=== PATIENT | female | born 1980 | race Caucasian/White ===

== ENCOUNTER 2019-03-02 12:14 | Emergency (ER) | payer SELFPAY ==
--- NOTE | 2019-03-02 12:26 | ER Document Report ---
ED Medical Screen (RME) - General Chief Complaint: Low Back Pain Stated Complaint: LOWER BACK PAIN Time Seen by Provider: 03/02/19 12:23 TRAVEL OUTSIDE OF THE [place] IN LAST 30 DAYS: No - HPI Notes: 03/02/19 12:24 Patient is a 39-year-old female with renal cancer in the past, not on any medicines and admission, who presents complaining of severe pain near her upper midline buttock area/coccyx area x2 days. She has not noticed any drainage or obvious swelling otherwise on the surface. Denies injury. Patient states that she has had some urinary frequency, but no other concerns or complaints. Denies drug allergies. I have treated and performed a rapid initial assessment of this patient. A comprehensive ED assessment and evaluation of the patient, analysis of test results and completion of medical decision making process will be conducted by additional ED providers. PHYSICAL EXAMINATION: GENERAL: Well-appearing, well-nourished and in no acute distress. A&Ox4. Answers questions appropriately. Low back/buttock: Patient has significant tenderness to her midline upper buttock area/coccyx area. I do not see any significant erythema or swelling superficially. No L-spine tenderness. No swelling of the rectum. - Related Data Allergies/Adverse Reactions: No Known Allergies Allergy (Verified 03/02/19 12:19) Past Medical History - Social History Chew tobacco use (# tins/day): No Frequency of alcohol use: None Past Surgical History: Reports: Hx Section - x 2, Hx Kidney (Renal Surgery), Hx Orthopedic Surgery - lower back, Hx Tonsillectomy, Hx Tubal Ligation
[2019-03-02 12:50] LABS: ABSOLUTE EOSINOPHILS # (AUTO) 0.2 10^3/uL (0.0-0.6); ABSOLUTE LYMPHOCYTES (AUTO) 1.7 10^3/uL (0.5-4.7); ABSOLUTE MONOCYTES (AUTO) 0.4 10^3/uL (0.1-1.4); ABSOLUTE NEUT (AUTO) 3.3 10^3/uL (1.7-8.2); BASOPHILS % (AUTO) 0.6 % (0-2); EOSINOPHILS % (AUTO) 3.1 % (0-6); HEMATOCRIT 39.1 % (36.0-47.0); HEMOGLOBIN 12.8 g/dL (12.0-15.5); LYMPHOCYTES % (AUTO) 29.9 % (13-45); MEAN CORPUSCULAR HEMOGLOBIN 26.3 pg (27.0-33.4); MEAN CORPUSCULAR HGB CONC 32.7 g/dL (32.0-36.0); MEAN CORPUSCULAR VOLUME 81 fl (80-97); PLATELET COUNT 257 10^3/uL (150-450); RED BLOOD COUNT 4.86 10^6/uL (3.72-5.28); RED CELL DISTRIBUTION WIDTH 15.6 % (11.5-14.0); SEGMENTED NEUTROPHILS % (AUTO) 58.4 % (42-78); TOTAL CELLS COUNTED % (AUTO) 100 %; WHITE BLOOD COUNT 5.6 10^3/uL (4.0-10.5)
[2019-03-02 13:06] LABS: ALBUMIN 3.9 g/dL (3.5-5.0); ALKALINE PHOSPHATASE 62 U/L (38-126); ANION GAP 7 (5-19); ASPARTATE AMINO TRANSFERASE 18 U/L (14-36); BILIRUBIN,DIRECT 0.2 mg/dL (0.0-0.4); BILIRUBIN,TOTAL 0.4 mg/dL (0.2-1.3); BLOOD UREA NITROGEN 19 mg/dL (7-20); CALCIUM 9.1 mg/dL (8.4-10.2); CARBON DIOXIDE 27 mmol/L (22-30); CHLORIDE 105 mmol/L (98-107); GLUCOSE 93 mg/dL (75-110); POTASSIUM 4.3 mmol/L (3.6-5.0)
[2019-03-02 13:50] LABS: APPEARANCE,URINE SLIGHTLY-CLOUDY; BILIRUBIN,URINE NEGATIVE (NEGATIVE); COLOR,URINE YELLOW; GLUCOSE, URINE NEGATIVE (NEGATIVE); KETONES,URINE NEGATIVE (NEGATIVE); PROTEIN,URINE NEGATIVE (NEGATIVE); URINE SPECIFIC GRAVITY 1.023; UROBILINOGEN,URINE NEGATIVE mg/dL (<2.0)
--- NOTE | 2019-03-02 14:54 | RADIOLOGY REPORT (SQ) ---
EXAM DESCRIPTION: CT PELVIS WITH COMPLETED DATE/TIME: 03/02/2019 2:34 pm REASON FOR STUDY: severe pain near coccyx, no injury, ?abscess COMPARISON: None. TECHNIQUE: CT scan of the pelvis performed after intravenous contrast. Images reviewed with soft ti ssue and bone windows. Reconstructed coronal and sagittal MPR images reviewed. All images stored on PACS. All CT scanners at this facility use dose modulation, iterative reconstruction, and/or weight based d osing when appropriate to reduce radiation dose to as low as reasonably achievable (ALARA). [facility]: Dose Right [facility]: CareDose [facility]: Dose Right [facility]: Teradose 4D [facility]: [place] J[employer]B RADIATION DOSE: CT Rad equipment meets quality standard of care and radiation dose reduction techniq ues were employed. CTDIvol: 21.1 mGy. DLP: 834 mGy-cm. mGy. LIMITATIONS: None. FINDINGS: PELVIC BONES: No acute fracture. No worrisome bone lesions. VISUALIZED SPINE: No acute findings. HIP(S): No acute fracture or dislocation. No worrisome bone lesions. PELVIC SOFT TISSUES: No significant findings. EXTRAPELVIC SOFT TISSUES: No significant findings. OTHER: No other significant finding. IMPRESSION: Abscess or other acute abnormality. TECHNICAL DOCUMENTATION: JOB ID: [id number] Quality ID # [id number]: Final reports with documentation of one or more dose reduction techniques (e.g., Au tomated exposure control, adjustment of the mA and/or kV according to patient size, use of iterative reconstruction technique) 2010 [employer]- All Rights Reserved Reading location - IP/workstation name: [email or web address]
[2019-03-02] MEDS ORDERED: KETOROLAC TROMETHAMINE INJ/PF 30 MG/1 ML SDV IV ONE (15:20)
--- NOTE | 2019-03-02 15:24 | ER Document Report ---
ED General - General Chief Complaint: Skin Problem Stated Complaint: LOWER BACK PAIN Time Seen by Provider: 03/02/19 12:23 TRAVEL OUTSIDE OF THE [place] IN LAST 30 DAYS: No - HPI Notes: Patient is a 39-year-old female who presents emergency department for evaluation of ~bone/sacral pain. Is been going on for the last 2 days. She states that night she had a sudden wave of nausea, was feeling poorly. This resolved, and has not returned. Over the last 48 hours, however, she has developed pain over her sacrum. She states it feels like it is in the skin. It does not radiate. It is sharp, worsened by pressure. Nothing seems to make it better. She denies any associated fevers or chills. No vomiting. No urinary symptoms. Normal bowel movements. Her pain is not worsened by bowel movements. No melena or hematochezia. - Related Data Allergies/Adverse Reactions: No Known Allergies Allergy (Verified 03/02/19 12:19) Past Medical History - General Information source: Patient - Social History Smoking Status: Current Every Day Smoker Chew tobacco use (# tins/day): No Frequency of alcohol use: None Family History: Reviewed & Not Pertinent Patient has suicidal ideation: No Patient has homicidal ideation: No Malignancy Medical History: Reports: Hx Renal (Kidney) Cancer Past Surgical History: Reports: Hx Section - x 2, Hx Kidney (Renal Surgery), Hx Orthopedic Surgery - lower back, Hx Tonsillectomy, Hx Tubal Ligation Review of Systems - Review of Systems Constitutional: No symptoms reported EENT: No symptoms reported Cardiovascular: No symptoms reported Respiratory: No symptoms reported Gastrointestinal: See HPI Genitourinary: No symptoms reported Female Genitourinary: No symptoms reported Musculoskeletal: No symptoms reported Skin: See HPI Neurological/Psychological: No symptoms reported Physical Exam - Vital signs Vitals: Temp Pulse Resp BP Pulse Ox 97.7 F 88 18 201/101 H 98 03/02/19 12:27 03/02/19 12:27 03/02/19 12:27 03/02/19 12:27 03/02/19 12:27 - Notes Notes: Is a very pleasant 39-year-old female. She is laying prone on the bed, no acute distress. Vital signs reviewed, please refer to chart. Head is normocephalic, atraumatic. Pupils equal round, reactive to light. Neck is supple without meningismus. Heart is regular rate and rhythm. Lungs are clear to auscultation bilaterally. Abdomen is soft, nontender, normoactive bowel sounds throughout. Extremities without cyanosis, clubbing. Posterior calves are nontender. Peripheral pulses are equal. Skin is warm and dry. Examination of the skin over the sacrum and buttock yields no obvious erythema, induration, or focal abnormality of any sort. She has significant tenderness to the skin overlying the gluteal cleft on the left. Again no associated skin changes that I can appreciate. She does not really have any significant tenderness about the coccyx. No clear rectal lesions. Good rectal tone. Examination of this region was performed with physician assistant signal maintainer Ag Fenton present. Course - Re-evaluation Re-evalutation: 03/02/19 15:29 Patient presents emergency department for evaluation. Unfortunately her exam would be quite limited by her body habitus. Given this information, CT scan of the pelvis was ordered. She also had laboratory investigations, which were largely unremarkable. At this point, I still do have a suspicion for an organizing pilonidal abscess. No clear soft tissue changes are noted on the scan. I am inclined to treat her with pain medication and antibiotics. We will have her follow-up with primary care. She is to return to the ED with worsening or new concerning symptoms of any sort. - Vital Signs Vital signs: Temp Pulse Resp BP Pulse Ox 97.7 F 88 18 201/101 H 98 03/02/19 12:27 03/02/19 12:27 03/02/19 12:27 03/02/19 12:27 03/02/19 12:27 - Laboratory Result Diagrams: 03/02/19 12:30 03/02/19 12:30 Laboratory results interpreted by me: 03/02/19 03/02/19 12:30 12:30 MCH 26.3 L RDW 15.6 H Est GFR (MDRD) Non-Af 59 L - Diagnostic Test Radiology reviewed: Image reviewed, Reports reviewed Radiology results interpreted by me: 03/02/19 15:[address] 03/02/19 12:23 IMPRESSION: Abscess or other acute abnormality. Discharge - Discharge Clinical Impression: Sacral pain Condition: Stable Disposition: HOME, SELF-CARE Instructions: Ice Packs ([facility]) Additional Instructions: I do not have a clear cause for your pain at this time. Take medications as prescribed. Follow-up with your doctor in 2 to 3 days. Return to the emergency department with worsening or new concerning symptoms of any sort.
[2019-03-02 16:22] VITALS: BP 151/94
== END 2019-03-02 16:15 | disposition home or self-care (01) ==
LOC: ER 12:14
DX: M53.3 Sacrococcygeal disorders, not elsewhere classified (principal); F17.200 Nicotine dependence, unspecified, uncomplicated
CPT/HCPCS: 36415; 85025; 81025; 80053; 81001; 72193; J1885; 96374; 99284

== ENCOUNTER 2019-04-21 23:06 | Emergency (ER) | payer SELFPAY ==
--- NOTE | 2019-04-22 00:56 | RADIOLOGY REPORT (SQ) ---
EXAM DESCRIPTION: XR CHEST 2 VIEWS COMPLETED DATE/TME: 04/21/2019 00:00 CLINICAL HISTORY: 39 years Female, chest pain COMPARISON: None. NUMBER OF VIEWS/TECHNIQUE: 2, Frontal, Lateral FINDINGS: Adequate lung volume, clear parenchyma, normal cardiac silhouette, and intact bony thorax. IMPRESSION: No acute cardiopulmonary findings.
[2019-04-22 01:33] LABS: ABSOLUTE EOSINOPHILS # (AUTO) 0.2 10^3/uL (0.0-0.6); ABSOLUTE LYMPHOCYTES (AUTO) 1.7 10^3/uL (0.5-4.7); ABSOLUTE MONOCYTES (AUTO) 0.5 10^3/uL (0.1-1.4); ABSOLUTE NEUT (AUTO) 3.5 10^3/uL (1.7-8.2); BASOPHILS % (AUTO) 0.6 % (0-2); EOSINOPHILS % (AUTO) 2.7 % (0-6); HEMATOCRIT 37.1 % (36.0-47.0); HEMOGLOBIN 12.4 g/dL (12.0-15.5); LYMPHOCYTES % (AUTO) 28.8 % (13-45); MEAN CORPUSCULAR HEMOGLOBIN 27.2 pg (27.0-33.4); MEAN CORPUSCULAR HGB CONC 33.5 g/dL (32.0-36.0); MEAN CORPUSCULAR VOLUME 81 fl (80-97); MONOCYTES % (AUTO) 7.7 % (3-13); PLATELET COUNT 233 10^3/uL (150-450); RED BLOOD COUNT 4.58 10^6/uL (3.72-5.28); RED CELL DISTRIBUTION WIDTH 15.5 % (11.5-14.0); SEGMENTED NEUTROPHILS % (AUTO) 60.2 % (42-78); TOTAL CELLS COUNTED % (AUTO) 100 %; WHITE BLOOD COUNT 5.9 10^3/uL (4.0-10.5)
[2019-04-22 01:54] LABS: ALBUMIN 3.7 g/dL (3.5-5.0); ALKALINE PHOSPHATASE 53 U/L (38-126); ANION GAP 7 (5-19); ASPARTATE AMINO TRANSFERASE 20 U/L (14-36); BILIRUBIN,DIRECT 0.1 mg/dL (0.0-0.4); BILIRUBIN,TOTAL 0.3 mg/dL (0.2-1.3); BLOOD UREA NITROGEN 12 mg/dL (7-20); CALCIUM 9.1 mg/dL (8.4-10.2); CARBON DIOXIDE 27 mmol/L (22-30); CHLORIDE 106 mmol/L (98-107); CREATINE KINASE 114 U/L (30-135); GLUCOSE 105 mg/dL (75-110); POTASSIUM 4.3 mmol/L (3.6-5.0); TOTAL PROTEIN 6.8 g/dL (6.3-8.2)
[2019-04-22 02:05] LABS: CREATINE KINASE MB 1.56 ng/mL (<4.55)
[2019-04-22 02:06] LABS: TROPONIN I < 0.012 ng/mL
--- NOTE | 2019-04-22 02:51 | ER Document Report ---
ED Cardiac - General Chief Complaint: Chest Pain Stated Complaint: CHEST PAIN Time Seen by Provider: 04/22/19 02:18 Mode of Arrival: Ambulatory Information source: Patient Notes: 39-year-old female patient presenting with chest pain. Patient reports a squeezing and tightening to left side of her chest with radiation into her back. She also reports associated shortness of breath. She states this is been going on for several days intermittently. She reports tonight at [address] She reports it lasted approximately 1 to 2 minutes and then gradually went away. TRAVEL OUTSIDE OF THE [place] IN LAST 30 DAYS: No - Related Data Allergies/Adverse Reactions: No Known Allergies Allergy (Verified 03/02/19 12:19) Past Medical History - General Information source: Patient - Social History Smoking Status: Current Every Day Smoker Frequency of alcohol use: None Family History: Reviewed & Not Pertinent Patient has suicidal ideation: No Patient has homicidal ideation: No Malignancy Medical History: Reports: Hx Renal (Kidney) Cancer Past Surgical History: Reports: Hx Section - x 2, Hx Kidney (Renal Surgery) - partial nephrectomy, Hx Orthopedic Surgery - lower back, Hx Tonsillectomy, Hx Tubal Ligation Review of Systems - Review of Systems Constitutional: No symptoms reported EENT: No symptoms reported Cardiovascular: See HPI Respiratory: See HPI Gastrointestinal: No symptoms reported Genitourinary: No symptoms reported Female Genitourinary: No symptoms reported Musculoskeletal: No symptoms reported Skin: No symptoms reported Physical Exam - Vital signs Vitals: Resp Pulse Ox 15 100 04/22/19 00:57 04/22/19 00:57 - Notes Notes: PHYSICAL EXAMINATION: GENERAL: Well-appearing, well-nourished and in no acute distress. HEAD: Atraumatic, normocephalic. EYES: Pupils equal round and reactive to light, extraocular movements intact, conjunctiva are normal. ENT: Nares patent, oropharynx clear without exudates. Moist mucous membranes. NECK: Normal range of motion, supple without lymphadenopathy LUNGS: Breath sounds clear to auscultation bilaterally and equal. No wheezes rales or rhonchi. HEART: Regular rate and rhythm without murmurs ABDOMEN: Soft, nontender, nondistended abdomen. No guarding, no rebound. No masses appreciated. Female : deferred Musculoskeletal: Normal range of motion, no pitting or edema. No cyanosis. No tenderness with palpation of the chest wall. NEUROLOGICAL: Cranial nerves grossly intact. Normal speech, normal gait. Normal sensory, motor exams PSYCH: Normal mood, normal affect. SKIN: Warm, Dry, normal turgor, no rashes or lesions noted. Course - Re-evaluation Re-evalutation: Initial labs negative. Troponin unremarkable. Asked patient to stay for repeat troponin. Patient declined stating that she feels better and wants to go home. Discussed risks of going home without repeat troponin. Patient will leave AGAINST MEDICAL ADVICE. - Vital Signs Vital signs: Temp Pulse Resp BP Pulse Ox 97.7 F 71 19 154/81 H 98 04/22/19 03:25 04/22/19 03:25 04/22/19 03:25 04/22/19 03:25 04/22/19 03:25 - Laboratory Result Diagrams: 04/22/19 01:15 04/22/19 01:15 Laboratory results interpreted by me: 04/22/19 01:15 RDW 15.5 H Discharge - Discharge Clinical Impression: Left against medical advice Chest pain Qualifiers: Chest pain type: unspecified Qualified Code(s): R07.9 - Chest pain, unspecified Headache Qualifiers: Headache type: unspecified Headache chronicity pattern: unspecified pattern Intractability: not intractable Qualified Code(s): R51 - Headache Condition: Stable Disposition: AGAINST MEDICAL ADVICE Additional Instructions: Your preliminary work-up today in the emergency department was unremarkable. The recommendation is to repeat cardiac enzymes in 2 hours. You have opted to leave the emergency department prior to repeating your cardiac enzymes. Although your initial work-up did look reassuring I cannot guarantee that this is not an acute cardiac event without additional blood work and monitoring. Please return to the emergency department at once if you develop any new or worsening symptoms. Please follow-up with primary care HARISH regarding today's visit
[2019-04-22 03:26] VITALS: BP 154/81
--- NOTE | 2019-04-22 14:27 | EKG REPORT ---
SEVERITY:- ABNORMAL ECG - SINUS RHYTHM ANTERIOR INFARCT, AGE INDETERMINATE : Confirmed by: Mariela Figueredo MD 22-Apr-2019 14:26:34
== END 2019-04-22 03:27 | disposition left against medical advice (07) ==
LOC: ER 23:06
DX: R07.9 Chest pain, unspecified (principal); R51 Headache; F17.200 Nicotine dependence, unspecified, uncomplicated
CPT/HCPCS: 36415; 71046; 80053; 82550; 82553; 84484; 85025; 93005; 93010; 99285